=== PATIENT | female | born 1965 | race Two or more races ===

== ENCOUNTER → 2017-04-25 | Emergency (ER) | payer OTHER ==
[~2017-04-25] VITALS: Ht 167.6 cm; Wt 76.7 kg
== END | disposition home or self-care (01) ==
LOC: ER 10:16
DX: S40.011A Contusion of right shoulder, initial encounter (principal); W18.39XA Other fall on same level, initial encounter; Y93.89 Activity, other specified; Y92.098 Other place in other non-institutional residence as the place of occurrence of the external cause; Y99.8 Other external cause status